=== PATIENT | male | born 1965 | race Caucasian/White ===

== ENCOUNTER 2016-11-10 07:33 | Day surgery (SDC) | payer BC, OTHER ==
[~2016-11-10 07:33] MED LIST: Buffered Lidocaine 1% SYR 3ML* 3 ML/SYR SYRINGE INTRADERM ONE; Famotidine IV* 10 MG/ML 2 ML (20 mg) IV ONE; Morphine INJ* 2 MG/ML 1 ML CARPUJECT IV PRN; PROCHLORPERAZINE INJ 5 MG/ML 2 ML VIAL IV PRN
[2016-11-10] MEDS ORDERED: Famotidine IV* 10 MG/ML 2 ML (20 mg) ONE (08:01)
[2016-11-10] MEDS ORDERED: Buffered Lidocaine 1% SYR 3ML* 3 ML/SYR SYRINGE ONE (08:02)
[2016-11-10] MEDS ORDERED: ceFAZolin 2 GM PREMIX (*) 2 GM/50 ML BAG IVPB ONE (08:02)
[2016-11-10] MEDS ORDERED: Midazolam* 1 MG/ML 5 ML VIAL (5 MG) ONE (08:03)
[2016-11-10] MEDS ORDERED: fentaNYL* 50 MCG/ML 2 ML VIAL (100 MCG VIAL) ONE ×2 (08:03→12:08)
[2016-11-10] MEDS ORDERED: KETAMINE HCL* 50 MG/ML 10 ML VIAL ONE (08:03)
[2016-11-10] MEDS ORDERED: Atracurium* 10 MG/ML 10 ML VIAL ONE (08:03)
[2016-11-10] MEDS ORDERED: Bupivacaine 0.25% EPI 200,000* 30 ML SDV ONE (09:15)
[2016-11-10] MEDS ORDERED: Propofol* 10 MG/ML 20 ML BTL IV PUSH ONE (09:52)
[2016-11-10] MEDS ORDERED: Glycopyrrolate IV* 0.2 MG/ML 1 ML VIAL ONE (09:52)
[2016-11-10] MEDS ORDERED: Ketorolac INJ* 30 MG/ML 1 ML VIAL ONE (09:52)
[2016-11-10] MEDS ORDERED: Dexamethasone IV* 4 MG/ML 1 ML (4 MG) ONE (09:52)
[2016-11-10] MEDS ORDERED: Lidocaine 2% PF * 5 ML VIAL ONE (09:52)
[2016-11-10] MEDS ORDERED: Neostigmine Methylsulfate* 2 MG/2 ML SYRINGE ONE (09:52)
[2016-11-10] MEDS ORDERED: Ondansetron INJ* 2 MG/ML VIAL ONE (09:52)
[2016-11-10] MEDS ORDERED: Morphine INJ* 10 MG/ML 1 ML CARPUJECT ONE (09:54)
--- NOTE | 2016-11-10 11:11 | SURGPN ---
Brief Operative Note - Surgery Procedures: OPERATIVE REPORT PRE-OP: Biliary dyskinesia POST-OP: same PROCEDURE: Laparoscopic cholecystectomy SURGEON: MD Riley ANESTHESIA: General and local, DrDequan [place] ASST: TIMOTHY Brannon IVF: min EBL: min SPECIMEN: gallbladder DRAIN: none WOUND CLASS: 2 COMPLICATIONS: none TO PACU
[2016-11-10] MEDS ORDERED: oxyCODONE/Acetamin 5/325 MG* TAB ONE (12:08)
[2016-11-10] MEDS: oxyCODONE/Acetamin 5/325 MG* TAB PO PRN ×2 (12:14→12:15)
[2016-11-10] MEDS: fentaNYL* 50 MCG/ML 2 ML VIAL (100 MCG VIAL) IV PRN ×4 (12:15→12:29)
[2016-11-10 12:32] VITALS: BP 139/89
--- NOTE | 2016-11-11 00:26 | OP ---
DATE OF OPERATION: 11/10/16 [facility] DATE OF : 61 SURGEON: Moshe Lin MD. INTERPRETER AND TRANSLATOR: TIMOTHY Solares. ANESTHESIOLOGIST: Dr. Alfredo. ANESTHESIA: Local with general. PRE-OP DIAGNOSIS: Biliary dyskinesia. POST-OP DIAGNOSIS: Biliary dyskinesia. OPERATIVE PROCEDURE: Laparoscopic cholecystectomy. ESTIMATED BLOOD LOSS: Minimal. WOUND CLASSIFICATION: II. DRAINS: None. COMPLICATIONS: None. SPECIMEN: Gallbladder. BRIEF HISTORY: Mr. Elliot Chao is a 50-year-old gentleman with a long history of epigastric right upper quadrant abdominal pain after eating and an ultrasound showing no gallstones. He underwent a CCK-HIDA scan, which showed an 8% ejection fraction. DESCRIPTION OF PROCEDURE: Written informed consent was obtained. The abdomen was marked with indelible ink and preoperative antibiotics were administered. The patient was taken to the operating room, placed in a supine position. Sequential compression devices and a warming blanket were applied. Anesthesia was administered and the abdomen was prepped and draped in the usual sterile fashion. A small transverse incision was made at the midline just above the umbilicus and the peritoneal cavity was entered under direct vision. A 12-mm blunt port was then inserted in the peritoneal cavity and this was insufflated up to 15 mmHg. Under direct vision, an 11-mm epigastric port was placed and two 5-mm ports were placed in the upper right side of the abdominal wall. The gallbladder was identified. There was some omental fatty tissue, which was adherent to the gallbladder all the way from the top down and this was sequentially removed using cautery and sharp dissection to expose the infundibulum of the gallbladder. The gallbladder did not show signs of acute or chronic inflammation and it was grasped with care. At the infundibular area , there was some thickened peritoneum, which was divided along the medial and lateral aspects of the gallbladder to identify the cystic duct and arteries and then the gallbladder. What should be noted is that in this area, there was some more thickened, perhaps chronically inflamed tissue, which made the dissection somewhat more tedious, but with care using the critical view technique and taking a significant portion of the inferior portion of the gallbladder off the liver bed, I was able to identify the cystic duct and artery as they entered the gallbladder quite clearly. The cystic duct was of normal and expected caliber. Once I had completed this dissection, the cystic duct and artery were then doubly clipped and divided. The gallbladder was removed from the liver bed using cautery and brought out through the epigastric incision in an EndoCatch bag. The right upper quadrant was evaluated and hemostasis was assured. I did need to cauterize some areas of the superior aspect of the liver bed, which were slightly oozing after the removal of the gallbladder. Once this was achieved, all ports were removed under direct vision of the camera. There was no abdominal wall bleeding. The umbilical fascia was closed with interrupted 0 Polysorb suture. The skin at all 4 incisions was approximated with subcuticular 4-0 Polysorb suture. Steri-Strips were applied. The patient tolerated the procedure well, and was taken to the recovery room in stable condition. CC: [facility]; Andrew Brothers * [id number]/CPS #: [id number] MTDD
== END 2016-11-10 12:55 | disposition home or self-care (01) ==
LOC: OR 07:33
PROVIDERS: ATTEND Surgery
DX: K81.1 Chronic cholecystitis (principal); I49.5 Sick sinus syndrome; K21.9 Gastro-esophageal reflux disease without esophagitis
CPT/HCPCS: 88304; A9270-GY; J0690; J1100; J1885; J2250; J2270; J2405; J2704; J3010

== ENCOUNTER 2019-07-25 08:40 | Emergency (ER) | payer BC, OTHER ==
[2019-07-25 09:00] VITALS: BP 140/89
--- NOTE | 2019-07-25 09:32 | UC ---
Respiratory Complaint HPI - HPI Summary HPI Summary: 53-year-old male comes in with a chief complaint of one week of upper respiratory tract infection symptoms. he's had some rhinorrhea however he's been using a neti pot which is been keeping his sinuses pretty clear. Patient has chest congestion with sputum production. Sputum was a worse when he first wakes up in the morning but with cough he can clear it. He's had pneumonia in the past and he feels like this is a bronchitis and is concerned he'll be getting a pneumonia from this illness. He's had some wheezing. Not a smoker no history of asthma or COPD. - History of Current Complaint Chief Complaint: UCRespiratory Stated Complaint: CHEST CONGESTION Time Seen by Provider: 07/25/19 09:12 Pain Intensity: 0 - Allergies/Home Medications Allergies/Adverse Reactions: Allergies Allergy/AdvReac Type Severity Reaction Status Date / Time bee venom protein (honey bee) Allergy Swelling Verified 07/25/19 08:54 Home Medications: Home Medications Aspirin EC TAB* [Ecotrin EC Low Dose 81 MG*] 81 mg PO DAILY 07/25/19 [History Confirmed 07/25/19] Losartan TAB* [Cozaar TAB*] 25 mg PO DAILY 07/25/19 [History Confirmed 07/25/19] PMH/Surg Hx/FS Hx/Imm Hx Previously Healthy: Yes Respiratory History: Pneumonia - Surgical History Surgical History: Yes Surgery Procedure, Year, and Place: Cholecystectomy, 2016, [place]; Pacemaker, 2008, [place]; Right Inguinal Herniorrhaphy, 1982, [place] - Family History Known Family History: Positive: Non-Contributory - Social History Alcohol Use: Weekly Substance Use Type: None Smoking Status (MU): Former Smoker Length of Time of Smoking/Using Tobacco: Smokeless Tobacco x 10 Years Review of Systems All Other Systems Reviewed And Are Negative: Yes Constitutional: Positive: Other - see hpi Skin: Positive: Negative Eyes: Positive: Negative ENT: Positive: Nasal Discharge, Sinus Congestion Respiratory: Positive: Cough, Other - see hpi Cardiovascular: Positive: Negative Gastrointestinal: Positive: Negative Motor: Positive: Negative Neurovascular: Positive: Negative Musculoskeletal: Positive: Negative Neurological: Positive: Negative Psychological: Positive: Negative Is Patient Immunocompromised?: No Physical Exam Triage Information Reviewed: Yes Appearance: Well-Appearing, No Pain Distress, Well-Nourished Vital Signs: Initial Vital Signs Temp 98.7 F 07/25/19 08:53 Pulse 62 07/25/19 08:53 Resp 16 07/25/19 08:53 BP 140/89 07/25/19 08:53 Pulse Ox 99 07/25/19 08:53 Vital Signs Reviewed: Yes Eye Exam: Normal Eyes: Positive: Conjunctiva Clear ENT: Positive: Pharyngeal erythema, Nasal congestion, Nasal drainage Neck: Positive: Supple Respiratory: Positive: Lungs clear, Normal breath sounds, No respiratory distress Cardiovascular: Positive: RRR Musculoskeletal: Positive: Strength Intact, ROM Intact Neurological: Positive: Alert Psychological: Positive: Age Appropriate Behavior Skin Exam: Normal Respiratory Course/Dx - Course Course Of Treatment: DISCUSSED VIRAL VERSES BACTERIAL INFECTIONS AND THE ROLE OF ANTIBIOTICS. THE PATIENT PREFERS TO BE ON ANTIBIOTICS AT THIS TIME. - Differential Dx/Diagnosis Provider Diagnosis: Bronchitis with bronchospasm Discharge ED - Sign-Out/Discharge Documenting (check all that apply): Patient Departure All imaging exams completed and their final reports reviewed: No Studies - Discharge Plan Condition: Stable Disposition: HOME Prescriptions: Albuterol HFA INHALER* [Ventolin HFA Inhaler*] 2 puff INH Q4H PRN #1 mdi PRN Reason: Wheezing DOXYcycline CAP(*) [DOXYcycline 100MG CAP(*)] 100 mg PO BID #20 cap Patient Education Materials: Acute Bronchitis (ED), Bronchospasm (ED) Referrals: Min Hyman DO [Primary Care Provider] - Additional Instructions: FOLLOW UP WITH YOUR DOCTOR IF NOT COMPLETELY IMPROVED. GET REEVALUATED SOONER IF NOT IMPROVING OR YOUR CONDITION WORSENS OR ANY QUESTIONS OR CONCERNS. - Billing Disposition and Condition Condition: STABLE Disposition: Home
== END 2019-07-25 09:37 | disposition home or self-care (01) ==
LOC: UCCORT 08:40
DX: J40 Bronchitis, not specified as acute or chronic (principal); J98.01 Acute bronchospasm; Z87.891 Personal history of nicotine dependence; Z79.82 Long term (current) use of aspirin; Z91.030 Bee allergy status
CPT/HCPCS: 99212; G0463